=== PATIENT | male | born 1990 | race Caucasian/White ===

== ENCOUNTER 2019-01-11 10:50 | Emergency (ER) | payer SELFPAY ==
[2019-01-11 10:51] VITALS: BP 121/65; PULSE 75; RESP 16; TEMP 36.6; O2SAT 98; BMI 19.0
--- NOTE | 2019-01-11 11:42 | ED.RN ---
PT WAS TOLD BY REGISTRATION THAT HIS INSURANCE WAS NOT VALID. PT DECIDED THAT HE DID NOT WANT TO STAY.
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
== END 2019-01-11 11:53 | disposition left against medical advice (07) ==
PROVIDERS: Emergency Provider Emergency Medicine
DX: S69.91XA Unspecified injury of right wrist, hand and finger(s), initial encounter (principal); X50.1XXA Overexertion from prolonged static or awkward postures, initial encounter; Y93.9 Activity, unspecified; Y92.9 Unspecified place or not applicable; Z53.21 Procedure and treatment not carried out due to patient leaving prior to being seen by health care provider; Z72.0 Tobacco use
CPT/HCPCS: 99282

== ENCOUNTER 2019-03-16 17:55 | Emergency (ER) | payer MEDICAID, SELFPAY ==
[2019-03-16 17:56] VITALS: BP 97/56; PULSE 121; RESP 18; TEMP 37; O2SAT 97; BMI 17.9
[2019-03-16 18:23] LABS: Absolute Neutrophil Count 14.1 X10^3/uL (2.0-7.7); Basophil% 0.6 % (0-1); Eosinophil# 0.21 X10^3/uL; Eosinophils% 1.2 % (0-5); Hematocrit 48.3 % (40-54); Hemoglobin 16.9 g/dL (13.0-16.5); Lymphocyte % 8.8 % (19-41); Mean Corpuscular Hgb 31.5 pg (27.0-32.0); Mean Corpuscular Volume 89.9 fL (80-94); Mean Platelet Vol. 9.8 fl (6.2-12.0); Monocyte# 1.19 X10^3/uL; NRBC Flagged by Analyzer 0 % (0-5); Neutrophil # 14.06 X10^3/uL (2.7-7.7); Platelet Count 224 K/mm3 (150-450); RBC Distribution Width SD 42.5 fl (35.1-43.9); Red Blood Count 5.37 M/mm3 (4.6-6.2); White Blood Count 17.1 K/mm3 (4.4-11.0)
[2019-03-16 18:31] VITALS: RESP 16
[2019-03-16 18:34] LABS: Anion Gap 9 (5-15); BUN 31 mg/dL (7-18); BUN/Creat Ratio 24.8 RATIO (10-20); Calcium,Total 9.5 mg/dL (8.5-10.1); Chloride 102 mmol/L (98-107); Creatinine, Serum 1.25 mg/dL (0.70-1.30); EST Glomerular Filtration Rate 72 mL/min (>60); Est Glom Filt Rate - Afr Amer 88 mL/min (>60); Estimated Creatinine Clearance 73.88 ml/min; Glucose 170 mg/dL (74-106); Potassium 3.5 mmol/L (3.5-5.1); Sodium Level 134 mmol/L (136-145)
--- NOTE | 2019-03-16 18:34 | CM.ED ---
SOCIAL WORK INFORMANT: TRIAGE NURSE REASON FOR REFERRAL: SUICIDAL PATIENT PRESENTS TO ED WITH SUICIDAL IDEATION. PATIENT IS SELF PAY. CRISIS TO EVALUATE ONCE MEDICALLY CLEARED. NURSING AND PHYSICIAN UPDATED. SHAWNA LIRIANO, REGULATOR PIN INSERTER, PLATFORM CONSULTANT.
[2019-03-16 18:42] LABS: Amphetamine Urine VISTA POSITIVE (<1000 ng/mL); Barbiturate Urine VISTA NEGATIVE (< 200 ng/mL); Benzodiazepine Urine VISTA NEGATIVE (< 200 ng/mL); Cocaine Urine VISTA NEGATIVE (< 300 ng/mL); Ecstacy Urine VISTA POSITIVE (< 500 ng/mL); Methadone Urine VISTA NEGATIVE (< 300 ng/mL); PCP Urine VISTA NEGATIVE (< 25 ng/mL); THC Urine VISTA POSITIVE (< 50 ng/mL); Vista UDS pH Range 5
[2019-03-16 18:48] LABS: Alcohol, Blood (Medical)-Serum < 3.0 mg/dL
[2019-03-16 19:20] VITALS: RESP 16
--- NOTE | 2019-03-16 19:24 | ED.VISSUMM ---
- ER Visit Summary Date of Service: 03/16/19 Chief Complaint: Suicidal ideation History of Present Illness: The patient is a 28 M presenting with suicidal ideation. Patient has been having visual hallucinations. He states he has also been talking to himself frequently. He stopped taking his medication for schizophrenia 2.5 months ago. He states that he has been considering trading his truck for a gun and killing himself. He has a history of methamphetamine use. He denies other complaints. Physical Examination: Vitals are stable. Patient is afebrile. Alert no acute distress. HEENT exam is unremarkable. Neck is supple. Lungs are clear and equal bilaterally. Heart is regular and tachycardic Abdomen is soft nontender nondistended. Extremities are unremarkable. Skin is warm and dry. No focal neurologic deficit. Rapid speech, flight of ideas Remainder of exam is unremarkable. Emergency Department Course and Treatment: CBC shows white count 17.1, hemoglobin 16.9. Chemistries show glucose 170, BUN 31. Tox positive for amphetamines, methamphetamine, THC. Alcohol negative. Discussed with the counseling center for evaluation. Disposition: Per counseling center Impression: Suicidal ideation, schizophrenia, noncompliance This note was generated with [employer] dictation software. It may contain incorrect words, spelling, and punctuation that were not noted in review of the chart prior to signing ED Disposition - Plan for ED Patient: Referrals: Care Physician,No Primary [Primary Care Provider] -
--- NOTE | 2019-03-16 19:42 | CM.ED ---
SOCIAL WORK ABDI FROM CRISIS HERE TO ASSESS PATIENT. SHAWNA LIRIANO, FRAME HAND, LOW HEEL BUILDER.
--- NOTE | 2019-03-16 20:22 | EKG12_ITS ---
Test Reason : [facility] [place] Blood Pressure : / mmHG Vent. Rate : 113 BPM Atrial Rate : 113 BPM P-R Int : 114 ms QRS Dur : 086 ms QT Int : 330 ms P-R-T Axes : 080 081 063 degrees QTc Int : 452 ms Sinus tachycardia Right atrial enlargement Borderline ECG Confirmed by ADRIANNE PAZ, ZOE ([id number]), society editor RAFITA BLANKENSHIP ([id number]) on 03/20/2019 10:20:46 AM Referred By: MILADIS Confirmed By:ZOE SILVER MD
[2019-03-16 20:45] LABS: AST(SGOT) 19 U/L (15-37); Alanine Aminotransfer ALT/SGPT 22 U/L (16-61); Alkaline Phosphatase 92 U/L (45-117); Bilirubin, Direct 0.28 mg/dL (0.00-0.30); Globulin 3.8 g/dL (2.2-4.2); Protein, Total 7.8 g/dL (6.4-8.2)
[2019-03-16 21:06] VITALS: RESP 16
[2019-03-16 21:11] LABS: Red Blood Cells-Urine 0 SEEN /hpf (0-5)
[2019-03-16 21:32] LABS: Color, Urine Yellow (Yellow); Glucose, Dipstick Normal (Normal); Leukocyte Esterase-Dipstick 25 /ul (Negative); Nitrite-Dipstick Negative (Negative); Occult Blood-Urine 10 /ul (Negative); Protein-Dipstick 30 mg/dl (Negative); Urine Bilirubin Dipstick Negative (Negative); Urine Clarity Sl. Cloudy (Clear); Urine Urobilinogen 1 mg/dl (Normal)
--- NOTE | 2019-03-16 21:37 | CM.ED ---
SOCIAL WORK UPDATED ON REFERRAL TO [facility].
[2019-03-16 21:42] LABS: Ketone-Dipstick 150 mg/dl (Negative)
--- NOTE | 2019-03-16 21:43 | ED.RN ---
lab called with critical lab results. Dr. Wei made aware. no new orders at this time
[2019-03-16 21:44] LABS: Bacteria 1+ /hpf (None Seen); Mucous, Urine 2+ /hpf (<or=2+); Squamous Epithelial Cells - UA 0-5 SEEN /hpf (0-5); White Blood Cells 0-5 SEEN /hpf (0-5)
[2019-03-16] MEDS: 0.9% Normal Saline 1,000 ML 999 ML IV (21:59)
[2019-03-16] MEDS: LORazepam 0.5 MG Tablet 1 MG PO (22:02)
[2019-03-16 22:45] VITALS: RESP 16
[2019-03-17] VITALS (13 sets, daily range): BP systolic 96–111; BP diastolic 58–96; PULSE 79–88; RESP 15–18; TEMP 36.9; O2SAT 98–100
--- NOTE | 2019-03-17 11:11 | NURSING ---
CALLED CRISIS, LEFT MESSAGE WITH ANSWERING SERVICE
--- NOTE | 2019-03-17 11:16 | NURSING ---
PATIENT 2ND IN LINE FOR A BED AT [facility]
[2019-03-17] MEDS: LORazepam 1 MG Tablet PO (19:25)
--- NOTE | 2019-03-17 20:23 | ED.RN ---
REPORT CALLED TO IVANA AT [facility]
== END 2019-03-17 20:40 ==
LOC: ED 18:44
PROVIDERS: Emergency Provider Emergency Medicine
DX: R45.851 Suicidal ideations (principal); F20.9 Schizophrenia, unspecified; Z91.14 Patient's other noncompliance with medication regimen; F15.90 Other stimulant use, unspecified, uncomplicated; F12.90 Cannabis use, unspecified, uncomplicated; Z72.0 Tobacco use
CPT/HCPCS: 36415; 80048; 80076; 80307; 80320; 81001; 85025; 93005; 96360; 99285; J7030; A4216; G0480

== ENCOUNTER 2019-06-25 13:22 | Emergency (ER) | payer SELFPAY ==
[2019-06-25 13:23] VITALS: PULSE 88; RESP 17; O2SAT 98
[2019-06-25 13:24] VITALS: BP 134/97; PULSE 109; RESP 28; TEMP 36.6; O2SAT 99; BMI 18.8
--- NOTE | 2019-06-25 13:42 | RAD_ITS ---
STUDY: X-RAY CHEST REASON FOR EXAM: Male, 28 years old. Right-sided chest pain. TECHNIQUE: Single AP portable view of the chest. COMPARISON: Comparison is made with prior study of January 17, 2011. FINDINGS: EKG electrodes are seen. Hyperinflation. The lungs are clear. There is no demonstrated pleural abnormality. Normal size heart. Normal mediastinum and ashley. Normal visualized pulmonary arteries. Normal visualized aortic arch and descending thoracic aorta. Normal visualized thoracic spine. Healed mid right clavicular fracture. There is no demonstrated abnormality of the visualized soft tissue structures of the upper abdomen. RAD/Chest 1 View (Portable) IMPRESSION: Hyperinflation. The lungs are clear. Electronically Signed: Alok Erickson, at 14:17 EST , Service support ,
--- NOTE | 2019-06-25 13:42 | EKG12_ITS ---
Test Reason : [facility] Blood Pressure : / mmHG Vent. Rate : 081 BPM Atrial Rate : 081 BPM P-R Int : 120 ms QRS Dur : 088 ms QT Int : 352 ms P-R-T Axes : 073 072 067 degrees QTc Int : 408 ms Normal sinus rhythm with sinus arrhythmia Normal ECG Confirmed by CLOTILDE SORENSEN ([id number]), telegraph editor SUZANNE KAPLAN ([id number]) on 06/28/2019 11:21:06 AM Referred By: LEDY Confirmed By:CLOTILDE SORENSEN
[2019-06-25 14:07] LABS: Absolute Lymphocyte Count 2.58 X10^3/uL (0.83-4.51); Absolute Neutrophil Count 9.9 X10^3/uL (2.0-7.7); Basophil# 0.11 X10^3/uL; Basophil% 0.8 % (0-1); Eosinophil# 0.18 X10^3/uL; Eosinophils% 1.3 % (0-5); Hematocrit 48.7 % (40-54); Hemoglobin 16.7 g/dL (13.0-16.5); Lymphocyte # 2.58 X10^3/ul (4.0); Lymphocyte % 18.6 % (19-41); Mean Corp Hgb Conc 34.3 g/dL (32-36); Mean Corpuscular Volume 93.3 fL (80-94); Mean Platelet Vol. 10.1 fl (6.2-12.0); Monocyte# 1.07 X10^3/uL; Monocyte% 7.7 % (0-10); NRBC Flagged by Analyzer 0 % (0-5); Neutrophil # 9.91 X10^3/uL (2.7-7.7); Neutrophil % 71.4 % (47-70); Platelet Count 258 K/mm3 (150-450); RBC Distribution Width CV 13.1 % (11.6-14.6); Red Blood Count 5.22 M/mm3 (4.6-6.2); White Blood Count 13.9 K/mm3 (4.4-11.0)
[2019-06-25 14:19] LABS: Anion Gap 6 (5-15); BUN 13 mg/dL (7-18); BUN/Creat Ratio 12.4 RATIO (10-20); Calcium,Total 8.7 mg/dL (8.5-10.1); Chloride 105 mmol/L (98-107); Creatinine, Serum 1.05 mg/dL (0.70-1.30); EST Glomerular Filtration Rate 88 mL/min (>60); Est Glom Filt Rate - Afr Amer 107 mL/min (>60); Glucose 96 mg/dL (74-106); Potassium 3.8 mmol/L (3.5-5.1); Sodium Level 141 mmol/L (136-145)
--- NOTE | 2019-06-25 15:18 | ED.DCSUM_ITS ---
- ER Visit Summary Date of Service: 06/25/19 Chief Complaint: Chest pain History of Present Illness: The patient is a 28 M with right-sided chest pain that radiates to his back. He feels like something is compressing his spine. This happened when he was shifting gears in his car. He had some symptoms yes terday, but it was worse today. He denies any history of heart disease, PE, or dissection. Denies any other associated symptoms like shortness of breath, nausea vomiting, sweats, lightheadedness, weakness, numbness, fevers. Physical Examination: Afebrile and vital signs unremarkable. Patient appears uncomfortable. He is arching his back and yelling. His heart is regular. Lungs are clear. Right chest is tender to palpation with light touch. Spine and ribs otherwise unremarkable. He is neurovascularly intact distally in all of his extremities. Skin appears normal. Test Results: EKG showed sinus rhythm at a rate of 81. White count 13.9 and hemoglobin 16.7. Chem panel normal. Troponin normal. X-ray showed hyperinflation but nothing acute. Emergency Department Course and Treatment: Patient was seen immediately. EKG was done and showed no sign of acute ischemia or infarction pattern. He was placed on the monitor. It sounds like his symptoms are myofascial. I did check some basic labs which were unremarkable. Chest x-ray was normal. Patient was treated with Ativan for muscle spasm and anxiety. On reevaluation, patient was resting comfortably. No longer arching his back. He said he did not feel any better. He declined reexamination. He said get me the fuck out of here and I am going to another hospital. Patient does not have any risk factors for PE or dissection. Nothing to suggest ACS. Patient will be discharged in his wishes. Treatment Plan: As above Disposition: Discharged Impression: 1. Chest pain This note was generated with [employer] dictation software. It may contain incorrect words, spelling, and punctuation that were not noted in review of the chart prior to signing ED Disposition - Plan for ED Patient: Referrals: Care Physician,No Primary [Primary Care Provider] -
--- NOTE | 2019-06-25 15:21 | ED.DEP ---
ED Disposition - Plan for ED Patient: Instructions: CHEST PAIN, Uncertain Cause Referrals: Jaylin Huang [NON-STAFF] -
--- NOTE | 2019-06-25 15:28 | ED.RN ---
PT REFUSING ALL CARE, CURSING, BELLIGERENT. REFUSES TO LET THIS RN OBTAIN VITAL SIGNS, REFUSES DISCHARGE PAPERWORK, REFUSES TO LEAVE ROOM.
--- NOTE | 2019-06-25 15:29 | ED.RN ---
POLICE AT BEDSIDE
== END 2019-06-25 15:51 | disposition home or self-care (01) ==
LOC: ED 14:07
PROVIDERS: Emergency Provider Emergency Medicine
DX: R07.9 Chest pain, unspecified (principal); F17.200 Nicotine dependence, unspecified, uncomplicated
CPT/HCPCS: 71045; 80048; 84484; 85025; 93005; 99281; A4216

== ENCOUNTER 2019-08-20 23:24 | Inpatient (IN) | payer MEDICAID, SELFPAY ==
[2019-08-20 23:26] VITALS: BP 133/71; PULSE 99; RESP 20; TEMP 36.7; O2SAT 98; BMI 19.4
--- NOTE | 2019-08-20 23:42 | EKG12_ITS ---
Test Reason : [facility] Blood Pressure : / mmHG Vent. Rate : 088 BPM Atrial Rate : 088 BPM P-R Int : 134 ms QRS Dur : 084 ms QT Int : 374 ms P-R-T Axes : 076 081 076 degrees QTc Int : 452 ms Normal sinus rhythm Normal ECG Confirmed by CLOTILDE SORENSEN ([id number]), web editor JORDAN PEOPLES ([id number]) on 08/22/2019 10:42:40 AM Referred By: ZAID Confirmed By:CLOTILDE SORENSEN
[2019-08-20 23:52] LABS: Absolute Lymphocyte Count 4.15 X10^3/uL (0.83-4.51); Absolute Neutrophil Count 6.1 X10^3/uL (2.0-7.7); Basophil# 0.11 X10^3/uL; Basophil% 0.9 % (0-1); Eosinophil# 0.54 X10^3/uL; Eosinophils% 4.6 % (0-5); Hematocrit 46.8 % (40-54); Hemoglobin 16.2 g/dL (13.0-16.5); Lymphocyte # 4.15 X10^3/ul (4.0); Lymphocyte % 35.3 % (19-41); Mean Corp Hgb Conc 34.6 g/dL (32-36); Mean Corpuscular Hgb 31.6 pg (27.0-32.0); Mean Corpuscular Volume 91.2 fL (80-94); Mean Platelet Vol. 9.9 fl (6.2-12.0); Monocyte% 6.8 % (0-10); NRBC Flagged by Analyzer 0 % (0-5); Neutrophil # 6.12 X10^3/uL (2.7-7.7); Neutrophil % 52.1 % (47-70); Platelet Count 285 K/mm3 (150-450); RBC Distribution Width CV 12.8 % (11.6-14.6); RBC Distribution Width SD 42.6 fl (35.1-43.9); Red Blood Count 5.13 M/mm3 (4.6-6.2); White Blood Count 11.8 K/mm3 (4.4-11.0)
--- NOTE | 2019-08-20 23:59 | ED.VIS.GEN ---
History of Present Illness Chief Complaint: ETOH Intox Narrative: Patient presenting due to being unresponsive. Per PD the patient was found unresponsive in his car. EMS was contacted. Patient was found with an empty bottle of whiskey. Additional history is unable to be obtained secondary to the patient being unresponsive. Past Medical History - Allergies and Home Meds Allergies/Adverse Reactions: Allergies No Known Allergies Allergy (Verified 08/20/19 23:48) Primary Care Physician: Care Physician,No Primary [Primary Care Provider] - Past Medical History: - - Past psychiatric history Smoking Status: Current every day smoker Review of Systems ROS: Unable to Obtain Physical Exam Vital Signs/Narrative: Vital Signs Temp Pulse Resp BP Pulse Ox 08/20/19 23:26 98.1 F 99 20 H 133/71 H 98 General: Well nourished, Well developed, Acute Distress, - - Patient appears to be protecting his airway. He does localize somewhat to noxious stimuli but does not respond to voice. He would not open his eyes. Head: Normocephalic, Atraumatic Eyes: Perrl, EOMI ENT: Moist mucous membranes Neck: Supple, Nontender Cardiovascular: Regular rate, Regular rhythm, No murmurs Respiratory: No distress, CTA bilaterally, Chest nontender Abdomen: Soft, Nontender, Nondistended, Normal bowel sounds Back: Normal Inspection Extremities: Nontender, No edema Skin: Normal color, No rash Neurological: - - Responds minimally to noxious stimuli Diagnostic/Tx/Re-eval - EKG Initial EKG Interpretation: - - Sinus rhythm at [address] segments normal T waves normal IL and QTc intervals normal QRS duration no evidence of acute ischemia or arrhythmia. - Medical Decision Making Patient presented secondary to undifferentiated altered mental status. Patient is breathing adequately and appears to be protecting his airway despite his decreased level of consciousness. There is no last known well time, and this seems more consistent with a encephalopathy rather than a stroke, so stroke team was not activated. CT imaging of the brain was found to be negative. CBC demonstrates a very mild leukocytosis of 11 with no neutrophilic predominance. Chemistry panel found to be unremarkable. Toxicology screen was positive for cannabinoids. Ethanol was found to be elevated to 140. Salicylate and Tylenol levels are found to be negative. EKG shows no signs of abnormal changes. ABG shows no evidence of profound acidosis. Carbon monoxide level was obtained and was only found to be 4. Patient was observed in the emergency department over the course of 3 hours, and despite that is still having decreased level of consciousness. He has a good gag reflex, but does not really localize well to noxious stimuli, but occasionally will move and moan. Again, this does not seem consistent with stroke, he has no evidence of head injury or intracranial hemorrhage, he has no evidence of meningitis. The likelihood is that this was a intentional overdose of some sort, but I believe the patient requires admission for further observation. - Critical Care Time Critical care time (excluding procedures): 30-74 minutes, Performing Direct Patient Care at Bedside ED Disposition - Plan for ED Patient: Disposition: Acute [facility] Diagnosis: Acute encephalopathy, History of suicide attempt Referrals: Care Physician,No Primary [Primary Care Provider] -
[2019-08-21] VITALS (22 sets, daily range): BP systolic 97–134; BP diastolic 53–87; PULSE 65–91; RESP 13–22; TEMP 36.3–37.3; O2SAT 93–99; BMI 19.3; BMI 19.5
[2019-08-21 00:09] LABS: AST(SGOT) 17 U/L (15-37); Alanine Aminotransfer ALT/SGPT 17 U/L (16-61); Albumin, Serum 3.7 g/dL (3.2-5.0); Alkaline Phosphatase 98 U/L (45-117); Anion Gap 5 (5-15); BUN 9 mg/dL (7-18); BUN/Creat Ratio 9.4 RATIO (10-20); Calcium,Total 8.8 mg/dL (8.5-10.1); Chloride 110 mmol/L (98-107); Creatinine, Serum 0.96 mg/dL (0.70-1.30); EST Glomerular Filtration Rate 98 mL/min (>60); Est Glom Filt Rate - Afr Amer 119 mL/min (>60); Estimated Creatinine Clearance 101.65 ml/min; Globulin 3.6 g/dL (2.2-4.2); Glucose 78 mg/dL (74-106); Potassium 3.6 mmol/L (3.5-5.1); Protein, Total 7.3 g/dL (6.4-8.2); Sodium Level 143 mmol/L (136-145)
[2019-08-21 00:10] LABS: Vista UDS pH Range 5
[2019-08-21 00:25] LABS: Carboxyhemoglobin Frac (CO) 4.1 % (0.0-1.5)
[2019-08-21 00:27] LABS: Amphetamine Urine VISTA NEGATIVE (<1000 ng/mL); Barbiturate Urine VISTA NEGATIVE (< 200 ng/mL); Benzodiazepine Urine VISTA NEGATIVE (< 200 ng/mL); Cocaine Urine VISTA NEGATIVE (< 300 ng/mL); Ecstacy Urine VISTA NEGATIVE (< 500 ng/mL); Methadone Urine VISTA NEGATIVE (< 300 ng/mL); PCP Urine VISTA NEGATIVE (< 25 ng/mL); THC Urine VISTA POSITIVE (< 50 ng/mL)
[2019-08-21 00:27] LABS: Acetaminophen (Tylenol) Level < 2.0 ug/mL (10.0-30.0); Salicylate 2.6 mg/dL (2.8-20.0)
[2019-08-21 00:28] LABS: Lactic Acid 2.6 mmol/L (0.4-1.9)
[2019-08-21 00:35] LABS: Blood Gas Specimen Type VEN; O2 Delivery Device Room Air; SITE OTHER; Time Given 20; VBG BASE EXCESS 6 mmol/L (-1.0-3.5); VBG Bicarbonate 31 mmol/L (22-26); VBG Oxygen Content 33 mmol/L (23-33); VBG PO2 23 mmHg (25-40); VBG SO2 37 % (50-70); VBG pCO2 52.1 mmHg (41-51); VBG pH 7.38 (7.32-7.42)
--- NOTE | 2019-08-21 00:35 | CPS ---
Venous blood gas obtained by nurse, ran by ARIANNA [facility].
[2019-08-21 03:55] LABS: Reflex Lactate? Y
[2019-08-21 04:20] LABS: Absolute Lymphocyte Count 2.64 X10^3/uL (0.83-4.51); Absolute Neutrophil Count 6.5 X10^3/uL (2.0-7.7); Ammonia < 10.0 umol/L (11-32); Basophil# 0.09 X10^3/uL; Basophil% 0.9 % (0-1); Eosinophil# 0.44 X10^3/uL; Eosinophils% 4.2 % (0-5); Lymphocyte # 2.64 X10^3/ul (4.0); Lymphocyte % 25.2 % (19-41); Mean Corp Hgb Conc 34.1 g/dL (32-36); Mean Corpuscular Hgb 31.3 pg (27.0-32.0); Mean Corpuscular Volume 91.9 fL (80-94); Mean Platelet Vol. 10.1 fl (6.2-12.0); Monocyte# 0.76 X10^3/uL; Monocyte% 7.2 % (0-10); NRBC Flagged by Analyzer 0 % (0-5); Neutrophil # 6.52 X10^3/uL (2.7-7.7); Neutrophil % 62.1 % (47-70); Platelet Count 257 K/mm3 (150-450); RBC Distribution Width CV 12.8 % (11.6-14.6); RBC Distribution Width SD 43.3 fl (35.1-43.9); Red Blood Count 4.79 M/mm3 (4.6-6.2); White Blood Count 10.5 K/mm3 (4.4-11.0)
--- NOTE | 2019-08-21 04:26 | HP.PCM_ITS ---
Problem List (1) Acute encephalopathy Status: Acute (2) History of suicide attempt Status: Chronic History of Present Illness Date of Admission: 08/21/19 Chief Complaint: Altered mental status The patient is a 28 year old M with past medical history of polysubstance use disorder, history of suicide attempt was found unresponsive by the police department. Patient was found in his car, slumped over the wheel, unresponsive with a bottle of whiskey. The EMS report, patient was moaning on arrival. He was unresponsive to painful stimuli. Patient was said to have turned his head with an ammonia stimulation. His vitals was 98.1F, heart rate 99, blood pressure 133/71, respiratory to 20, SPO2 was 98% on room air. Admitting blood work showed WBC count of 11.8, otherwise normal CBCD. CMP was unremarkable. Lactic acid was 2.6. Ammonia<10. Urine tox was positive for cannabinoids and alcohol. CT scan of the brain showed no acute intracranial process. Past Medical History Past Medical History (Chronic Problems): Chronic Problems History of suicide attempt (Chronic) Allergies No Known Allergies Allergy (Verified 08/20/19 23:48) Home Medications: Ambulatory Orders Medication Instructions Recorded No Known/Unobtainable [No Known 03/06/17 Home Medications] Surgical History: no surgical history Psychiatric History: No pertinent psych hx Smoking Status: Current every day smoker Alcohol: Heavy Drugs: Marijuana - *Family History Maternal History Items: Unknown Paternal History Items: Unknown Review of Systems Unable to obtain accurate/complete ROS d/t: Unable to obtain review of systems on account of unresponsiveness VTE Information - Inpt Only VTE Present on Admission: No VTE Pharm Prophylaxis ordered?: Yes Patient Problems: Active and Suspected Problems Acute encephalopathy (Acute) - Physical Exam Vitals/I&O's: Vital Signs Temp Pulse Resp BP Pulse Ox 98.1 F 91 18 134/64 H 99 08/20/19 23:26 08/21/19 02:00 08/21/19 02:00 08/21/19 02:00 08/21/19 02:00 Oxygen Delivery Method Room Air Weight: 60.5 kg Body Mass Index (BMI) 19.3 Finger Stick Blood Glucose 70 General: Lethargic, - - Patient not responsive to any stimuli, appears to be in deep sleep HEENT: Atraumatic, Normocephalic, - - Reports equal and reactive to light Neck: Supple Lungs: Clear to auscultation Cardiovascular: Regular rate Abdomen: Bowel Sounds Present Extremities: No clubbing Skin: No rashes Musculoskeletal: No Tenderness to Palpation of Joints or Extremities Lymphatic: No Cervical, Supraclavicular, or Inguinal Adenopathy Neurological: Cranial nerves II-XII grossly intact Psych/Mental Status: Normal Affect Laboratory Results 08/20/19 23:30: WBC 11.8 H, RBC 5.13, Hgb 16.2, Hct 46.8, MCV 91.2, MCH 31.6, MCHC 34.6, RDW Std Deviation 42.6, RDW Coeff of Shaina 12.8, Plt Count 285, MPV 9.9, Immature Gran % (Auto) 0.300, Neut % (Auto) 52.1, Lymph % (Auto) 35.3, [place] % (Auto) 6.8, Eos % (Auto) 4.6, Baso % (Auto) 0.9, Absolute Neuts (auto) 6.1, Absolute Lymphs (auto) 4.15, Nucleated RBC % 0 08/20/19 23:30: Sodium 143, Potassium 3.6, Chloride 110 H, Carbon Dioxide 28.0, Anion Gap 5, BUN 9, Creatinine 0.96, Estim Creat Clear Calc 101.65, Est GFR (MDRD) Af Amer 119, Est GFR (MDRD) Non-Af 98, BUN/Creatinine Ratio 9.4 L, Glucose 78, Calcium 8.8, Total Bilirubin 0.20, AST 17, ALT 17, Alkaline Phosphatase 98, Total Protein 7.3, Albumin 3.7, Globulin 3.6, Albumin/Globulin Ratio 1.0 08/20/19 23:30: Ethyl Alcohol 147.0 08/20/19 23:30: Salicylates 2.6 L, Acetaminophen < 2.0 L 08/20/19 23:30: VBG Carboxyhemoglobin 4.1 H 08/20/19 23:38: Urine Opiates Screen NEGATIVE, Urine Methadone Screen NEGATIVE, Ur Barbiturates Screen NEGATIVE, Ur Phencyclidine Scrn NEGATIVE, Ur Amphetamines Screen NEGATIVE, U Methamphetamin-MDMA NEGATIVE, U Benzodiazepines Scrn NEGATIVE, Urine Cocaine Screen NEGATIVE, U Cannabinoids Screen POSITIVE H, Ur Drug Screen Comment 08/20/19 23:55: Lactic Acid 2.6 H* 08/21/19 00:31: Specimen Type LUIS, Sample Site OTHER, VBG pH 7.38, VBG pO2 23 L, VBG O2 Sat (Calc) 37 L, VBG O2 Content 33, VBG Base Excess 6 H, POC Mix VBG pCO2 Pt Tmp 52.1 H, O2 Delivery Device Room Air, Blood Gas Notified Whom ED MD, Blood Gas Notified Time 08/21/19 03:35: Ammonia < 10.0 L 08/21/19 03:35: WBC 10.5, RBC 4.79, Hgb 15.0, Hct 44.0, MCV 91.9, MCH 31.3, MCHC 34.1, RDW Std Deviation 43.3, RDW Coeff of Shaina 12.8, Plt Count 257, MPV 10.1, Immature Gran % (Auto) 0.400, Neut % (Auto) 62.1, Lymph % (Auto) 25.2, [place] % (Auto) 7.2, Eos % (Auto) 4.2, Baso % (Auto) 0.9, Absolute Neuts (auto) 6.5, Absolute Lymphs (auto) 2.64, Nucleated RBC % 0 08/21/19 03:35: Sodium Pending, Potassium Pending, Chloride Pending, Carbon Dioxide Pending, Anion Gap Pending, BUN Pending, Creatinine Pending, Est GFR (MDRD) Af Amer Pending, Est GFR (MDRD) Non-Af Pending, BUN/Creatinine Ratio Pending, Glucose Pending, Calcium Pending, Total Bilirubin Pending, AST Pending, ALT Pending, Alkaline Phosphatase Pending, Total Protein Pending, Albumin Pending Current Medications Glucagon () 1 mg IM .X1 PRN PRN Reason: Hypoglycemia Sodium Chloride () 250 mls @ 15 mls/hr IV .[id number] PRN PRN Reason: Saline Flush Sodium Chloride () 250 mls @ 15 mls/hr IV .[id number] PRN PRN Reason: Additional IVPB Infusion Dextrose (Dextrose 10%-Water) 250 mls @ 999 mls/hr IV .Q16M PRN; Protocol PRN Reason: HYPOGLYCEMIA Ondansetron HCl (Zofran) 4 mg IV Q8H PRN PRN PRN Reason: NAUSEA/VOMITING Sodium Chloride () 10 - 40 ml IV UD PRN PRN Reason: SALINE FLUSH Assessment/Plan All Active Problems Acute encephalopathy (Acute) 28 year old M with past medical history of polysubstance use disorder, history of suicide attempt was found unresponsive by the police department. 1. Acute encephalopathy, likely toxic related to substance abuse Urine tox is positive for cannabinoids, serum alcohol level is 147, ammonia is less than 10 May be related to other substances he may have taken that we are unable to test for. His GCS is about 3/15 but he appears intoxicated, sleeping Not responsive to noxious stimuli. Has an intact gag reflexes VBG on admission was unremarkable. His oxygen saturations and his blood pressures have been stable Will continue to monitor. Will have a low threshold for intubation for primary airway protection We will need to contact family to act as surrogate decision makers for care 2. History of suicidal attempt, unclear if this was a suicidal attempt 3. Polysubstance use disorder, will start on folic acid, thiamine and D5NS 4. DVT PPx- Heparin SC Code Visit Inpatient E&M: 17852 Init Hosp L3
[2019-08-21 04:31] LABS: Bedside Glucose 88 mg/dL (70-110)
[2019-08-21 04:51] LABS: ALB/GLOB Ratio 1.1 RATIO (0.9-2.4); AST(SGOT) 15 U/L (15-37); Alanine Aminotransfer ALT/SGPT 16 U/L (16-61); Albumin, Serum 3.3 g/dL (3.2-5.0); Alkaline Phosphatase 86 U/L (45-117); Anion Gap 5 (5-15); BUN 9 mg/dL (7-18); BUN/Creat Ratio 11.6 RATIO (10-20); Chloride 110 mmol/L (98-107); Creatinine, Serum 0.77 mg/dL (0.70-1.30); EST Glomerular Filtration Rate 125 mL/min (>60); Est Glom Filt Rate - Afr Amer 152 mL/min (>60); Estimated Creatinine Clearance 121.13 ml/min; Glucose 90 mg/dL (74-106); Potassium 3.7 mmol/L (3.5-5.1); Protein, Total 6.3 g/dL (6.4-8.2); Sodium Level 143 mmol/L (136-145)
[2019-08-21 04:56] LABS: Lactic Acid 1.3 mmol/L (0.4-1.9)
[2019-08-21] MEDS: 0.9% Saline Lock 10 ML Syringe IV (04:57)
[2019-08-21] MEDS: Heparin Injection (Vial) 5,000 UNIT/ML VIAL 5000 UNIT SC (04:59)
[2019-08-21] MEDS: Dextrose 5%/0.9% NaCl 1,000 ML 100 ML IV (05:34)
[2019-08-21 06:40] LABS: Bedside Glucose 95 mg/dL (70-110)
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
[2019-08-21] MEDS: LORazepam 1 MG Tablet PO ×2 (12:06→20:01)
--- NOTE | 2019-08-21 12:45 | PN_ITS ---
Progress Note Patient was admitted for alcohol desiccation, was obtunded. This morning, he is alert and noted x3. He denies any complaints. He denied any suicidal attempts or ideations. Physical examination is unremarkable. Vital signs are stable. He was evaluated by mental crisis and recommended that there is no need for inpatient psychiatric admission evaluation as patient is not suicidal. Patient showed interest in quitting drinking alcohol and he wanted to be detoxified. I explained to the patient that he will be moved out of the ICU and will start on medical stabilization protocol for alcohol intoxication/withdrawal. Plan: Transfer to [place] [id number], start Ativan taper for alcohol withdrawal, PRN methocarbamol, Zofran, Bentyl, Vistaril, daily thiamine folic acid, daily vitamins. STROKE Vital Signs/Narrative: Vital Signs Temp Pulse Resp BP BP Pulse Ox 08/21/19 12:00 97.9 F 79 14 107/72 97 08/21/19 11:00 83 22 H 107/87 H 98 08/21/19 10:00 72 18 106/67 99 08/21/19 09:00 66 19 H 114/55 L 97
--- NOTE | 2019-08-21 15:49 | CASEMGMT ---
Social Work SW attempted to speak with pt in room. Pt presenting with eyes closed did awake when name called. Pt groggy and stating he would prefer to talk to SW tomorrow. SW will revisit pt tomorrow. MANI Rider
--- NOTE | 2019-08-21 16:38 | NURSING ---
pt drowsy , arousable to voice, but quickly falls back to sleep. No giving Ativan scheduled at this time
--- NOTE | 2019-08-21 17:52 | NURSING ---
report given to Terri MANCERA on MS3
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
[2019-08-22] VITALS (7 sets, daily range): BP systolic 101–112; BP diastolic 55–73; PULSE 67–84; RESP 16–18; TEMP 36.7–37; O2SAT 93–96
[2019-08-22] MEDS: LORazepam 1 MG Tablet PO ×5 (00:02→20:16)
[2019-08-22] MEDS: Methocarbamol 750 MG Tablet PO (00:04)
[2019-08-22] MEDS: Acetaminophen 500 MG Tablet PO (04:04)
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
[2019-08-22] MEDS: Folic Acid 1 MG Tablet PO (09:15)
[2019-08-22] MEDS: Thiamine Hydrochloride 100 MG Tablet PO (09:15)
[2019-08-22] MEDS: Multivitamins,Therapeutic Tablet 1 TABLET PO (09:15)
--- NOTE | 2019-08-22 10:07 | NURSING ---
spoke with dr agee re: possible abnormal heart sound/rub versus rhonchi, does not change with cough
--- NOTE | 2019-08-22 12:13 | CASEMGMT ---
Social Work MARY met with pt in room and introduced self and role at . Pt confirms he did see patient financial services and submitted a Medicaid application. SW reminded pt that he will need to submit requested documents to [employer] to complete application and he is understanding and agreeable. SW also inquired about visit from Crisis and pt confirms that he has an appointment set and is planning to keep appointment but cannot remember when. Pt stating that he has been using alcohol to cope with anxiety. Pt stating he previously has used heroine to cope but not any longer. Pt has utilized the services of [facility] for drug abuse. Pt did accept written information on alcohol programs in the area. Per Crisis note, appointment is 08/28 at 8am. SW wrote appointment card for pt and he accepted and confirmed he will have transportation to appointment. SW will remain available should other need arise. MANI Rider
--- NOTE | 2019-08-22 14:27 | CHAPLAIN ---
patient is sleeping and did not awaken at mention of his name; left calling card
[2019-08-22] MEDS: traZODone 50 MG Tablet PO (20:17)
[2019-08-23] MEDS: LORazepam 1 MG Tablet PO ×2 (02:58→09:03)
[2019-08-23 04:00] VITALS: BP 118/48; PULSE 65; RESP 16; TEMP 36.6; O2SAT 98
[2019-08-23] MEDS: Multivitamins,Therapeutic Tablet 1 TABLET PO (09:03)
[2019-08-23] MEDS: Folic Acid 1 MG Tablet PO (09:03)
[2019-08-23] MEDS: Thiamine Hydrochloride 100 MG Tablet PO (09:03)
--- NOTE | 2019-08-23 09:06 | PN_ITS ---
Patient Problems: Active and Suspected Problems Acute encephalopathy (Acute) Acute alcohol intoxication (Acute) Subjective: Chief complaint: Follow-up after admission for acute alcohol intoxication/withdrawal. Patient seen and examined. No acute events overnight. He denied any complaints. He was able to sleep at night. He did mention that he does have some craving for drinking alcohol. His vital signs are stable. - Physical Exam Vitals/I&O's: Vital Signs Temp Pulse Resp BP Pulse Ox 97.9 F 65 16 118/48 L 98 08/23/19 04:00 08/23/19 04:00 08/23/19 04:00 08/23/19 04:00 08/23/19 04:00 Oxygen Delivery Method Room Air Weight: 135 lb 9.349 oz Body Mass Index (BMI) 19.3 Finger Stick Blood Glucose 70 Intake and Output for Last 24 Hours 08/21/19 08/22/19 08/23/19 23:59 23:59 23:59 Intake Total 2302.2 / 2952.2 1800 / 1999 500 / 500 Output Total 900 / 900 Balance 1402.2 / 2052.2 1800 / 2000 500 / 500 General: Alert, Oriented x3, Cooperative, No apparent distress HEENT: Atraumatic, PERRLA, EOMI, Normocephalic Oral: Moist Mucosa, No Gingival or Mucosal Lesions/ Ulcerations Neck: Supple, No JVD, Negative Carotid Bruits, Trachea Midline, Thyroid Normal Size and Texture Lungs: Clear to auscultation, No rhonchi, No wheeze, No rales Cardiovascular: Regular rate, Regular Rhythm, Normal S1, Normal S2, PMI Normal Abdomen: Bowel Sounds Present, Soft, Non Tender, Non-Distended, No Hepato- splenomegaly Extremities: No clubbing, No cyanosis, No edema Skin: No rashes, No breakdown Lymphatic: No Cervical, Supraclavicular, or Inguinal Adenopathy Neurological: Cranial nerves II-XII grossly intact, Neuro grossly intact Psych/Mental Status: Normal Affect, Appropriate Current Medications Acetaminophen (Tylenol) 500 mg PO Q4H PRN PRN PRN Reason: Temp > 100.4 F Last Admin: 08/22/19 04:04 Dose: 500 mg Documented by: Dicyclomine HCl (Bentyl) 20 mg PO Q6H PRN PRN PRN Reason: abdominal discomfort Folic [facility] (Folic Acid) [facility] Stop: 08/24/19 08:01 Last Admin: 08/23/19 09:03 Dose: 1 mg Documented by: Glucagon () 1 mg IM .X1 PRN PRN Reason: Hypoglycemia Hydroxyzine Pamoate (Vistaril Pamoate Capsule) 50 mg PO Q6H PRN PRN PRN Reason: Mild Anxiety (score 1/3) Sodium Chloride () 250 mls @ 15 mls/hr IV .[id number] PRN PRN Reason: Saline Flush Sodium Chloride () 250 mls @ 15 mls/hr IV .[id number] PRN PRN Reason: Additional IVPB Infusion Loperamide HCl (Imodium) 2 - 4 mg PO UD PRN PRN Reason: LOOSE STOOLS Lorazepam (Ativan) 1 mg PO Q8H [facility]; Taper Stop: 08/24/19 15:59 Last Admin: 08/23/19 09:03 Dose: 1 mg Documented by: Methocarbamol (Methocarbamol) 750 mg PO Q6H PRN PRN PRN Reason: Muscle Aches Last Admin: 08/22/19 00:04 Dose: 750 mg Documented by: Multivitamins (Multivitamin) [facility] Last Admin: 08/23/19 09:03 Dose: 1 tablet Documented by: Ondansetron HCl (Zofran Odt) 4 mg PO Q6H PRN PRN PRN Reason: NAUSEA Sodium Chloride () 10 - 40 ml IV UD PRN PRN Reason: SALINE FLUSH Last Admin: 08/21/19 04:57 Dose: 20 ml Documented by: Thiamine HCl (Vitamin B1) [facility] Stop: 08/24/19 08:01 Last Admin: 08/23/19 09:03 Dose: 100 mg Documented by: Trazodone HCl (Desyrel) 50 mg PO QHS [facility] Last Admin: 08/22/19 20:17 Dose: 50 mg Documented by: Medical Necessity - Tobacco Use Smoking Status: Current every day smoker Tobacco Use: Cigarettes Assessment/Plan All Active Problems Acute encephalopathy (Acute) Acute alcohol intoxication (Acute) This is a 28 years old male patient presented to the emergency room because he was found unresponsive in his car by the police, was admitted to the intensive care unit for alcohol intoxication and later, patient requested alcohol detoxification. #1 acute encephalopathy: Secondary to intoxication. Resolved. His vital signs are stable. Routine blood work was unremarkable. His blood alcohol level was 147. Urine drug screen was positive for cannabinoids. CT scan brain showed no acute findings. #2 acute alcohol intoxication/withdrawal: He is on Ativan taper, thiamine, folic acid, PRN Bentyl, methocarbamol, Vistaril, Imodium, Zofran and trazodone. Symptoms are improving, no significant symptoms of withdrawal. Vitals are st able. Plan to continue same treatment, DC home tomorrow morning, follow-up with [facility] program as outpatient. #3 elevated lactic acid: Attributed to being unresponsive secondary to intoxication. Lactic acid is back to normal with IV fluids. No evidence of infection. #4 history of suicide attempt: Patient looks depressed, poor eye contact. He was evaluated by mental causes yesterday and he appeared to be not suicidal or homicidal and he requested alcohol detoxification. Mental crisis team mentioned that he does not need inpatient psychiatric evaluation. #5 tobacco abuse: NicoDerm patch if desired. #6 DVT prophylaxis: Low risk patient, no prophylaxis indicated. This note was generated with [employer] dictation software. It may contain incorrect words, spelling, and punctuation that were not noted in checking the note before signing. Code Visit Inpatient E&M: 81880 Subs Hosp L2
[2019-08-23 09:22] VITALS: BP 111/49; PULSE 70; RESP 18; TEMP 36.7; O2SAT 95
--- NOTE | 2019-08-23 14:37 | PCM.DC.SUM ---
Discharge Date and Diagnosis Date of Admission: 08/21/19 Date of Discharge: 08/23/19 - Primary Discharge Diagnosis #1 acute alcohol intoxication. #2 acute encephalopathy. #3 lactic acidosis. #4 acute alcohol withdrawal requested medical stabilization. - Secondary Discharge Diagnosis Chronic Problems History of suicide attempt (Chronic) Tobacco abuse (Chronic) Hospital Course and Treatment Imaging Results: Clinical Impression(s) from Imaging Studies Brain CT 08/21/19 23:41 IMPRESSION: Negative CT brain without contrast. Electronically Signed: Zaire Elan, at 0:36 EST Tel , Service support , Consultations 08/21/19 08:04 Consult: Mental Health/Crisis Routine Reason for consult?: Alcohol intoxication, depressed, history of suicide attempt Date Notified:: 08/21/19 Time notified:: 08:32 Operations: None Procedures: None Summary of Care Provided: The patient is a 28 year old M patient presented to the emergency room because he was found unresponsive in his car by police, was found to have acute alcohol intoxication, admitted to intensive care unit because he was in deep sleep and encephalopathic. Blood alcohol level on admission was 147. Urine drug screen was positive for cannabinoids. He was found to have lactic acid of 2.6 on admission which is attributed to being unresponsive and hyper intoxication. There was no evidence of sepsis or severe sepsis, no evidence of infection. His ammonia level was normal. CT scan brain showed no acute findings. The next day after admission, patient woke up, was having poor eye contact and seemed depressed. He does have a history of suicide attempts. During this hospital stay, he denied any suicide attempts, ideations or intentions. He was evaluated by mental health crisis and stated that he is not suicidal or homicidal and no indication for inpatient psychiatric evaluation or treatment. On that day, patient requested detoxification from alcohol abuse. Patient was transferred to [facility] and was started on alcohol detox program with tapering Ativan, thiamine, folic acid, PRN Bentyl, Vistaril, methocarbamol, Zofran and trazodone. He did okay until the day when he left the hospital. He stated to the nursing staff that he wants to leave AMA. I was on the floor and there was about to see the patient after I see when patient and when I came out of that room, the nurse told me the patient left the floor already. Patient left the hospital AGAINST MEDICAL ADVICE. - Physical Exam Vitals/I&O's: Vital Signs Temp Pulse Resp BP Pulse Ox 98.1 F 70 18 111/49 L 95 08/23/19 09:22 08/23/19 09:22 08/23/19 09:22 08/23/19 09:22 08/23/19 09:22 Oxygen Delivery Method Room Air Weight: 135 lb 9.349 oz Body Mass Index (BMI) 19.3 Finger Stick Blood Glucose 70 Intake and Output for Last 24 Hours 08/21/19 08/22/19 08/23/19 23:59 23:59 23:59 Intake Total 2302.2 / 2952.2 1800 / 1999 500 / 500 Output Total 900 / 900 Balance 1402.2 / 2052.2 1799 / 1999 500 / 500 General: Alert, Oriented x3, Cooperative, No apparent distress HEENT: Atraumatic, PERRLA, EOMI, Normocephalic Oral: Moist Mucosa, No Gingival or Mucosal Lesions/ Ulcerations Neck: Supple, No JVD, Negative Carotid Bruits, Trachea Midline, Thyroid Normal Size and Texture Lungs: Clear to auscultation, Normal air movement, No rhonchi, No wheeze, No rales Cardiovascular: Regular rate, Regular Rhythm, Normal S1, Normal S2, PMI Normal Abdomen: Bowel Sounds Present, Soft, Non Tender, Non-Distended, No Hepato-splenomegaly Extremities: No clubbing, No cyanosis, No edema Skin: No rashes, No breakdown Lymphatic: No Cervical, Supraclavicular, or Inguinal Adenopathy Neurological: Cranial nerves II-XII grossly intact, Neuro grossly intact Psych/Mental Status: Appropriate, Flat Affect Home Medications: Medications to take at Discharge No Known/Unobtainable [No Known Home Medications] 03/06/17 Primary Care Physician: Care Physician,No Primary [Primary Care Provider] - Disposition: Against Medical Advice Minutes spent on discharge:: 27 Patient Condition:: Stable Medical Necessity - Tobacco Use Smoking Status: Current every day smoker Tobacco Use: Cigarettes Meaningful Use Info Meaningful Use Diagnoses (Choose all that apply): None applicable Code Visit Inpatient E&M: 14561 Disch Hosp
== END 2019-08-23 14:22 | disposition left against medical advice (07) | DRG 917 ==
LOC: ED 08-21 02:18 → ICU 08-21 03:38 → MS3 08-21 17:57
PROVIDERS: Admitting Provider Internal Medicine; Emergency Provider Emergency Medicine; Visit Provider Hospitalist
DX: T51.0X1A Toxic effect of ethanol, accidental (unintentional), initial encounter (principal); G92 Toxic encephalopathy; F10.239 Alcohol dependence with withdrawal, unspecified; E87.2 Acidosis; Y92.810 Car as the place of occurrence of the external cause; F10.229 Alcohol dependence with intoxication, unspecified; F12.90 Cannabis use, unspecified, uncomplicated; Y90.6 Blood alcohol level of 120-199 mg/100 ml; F17.210 Nicotine dependence, cigarettes, uncomplicated; Z91.5 Personal history of self-harm; Z53.29 Procedure and treatment not carried out because of patient's decision for other reasons
CPT/HCPCS: 70450; 80053; 80307; 80320; 80329; 82140; 82375; 82803; 82962; 83605; 85025; 93005; 99285; J7030; P9612; A4216; G0480; J3490

== ENCOUNTER 2023-10-02 00:05 | Emergency (ER) | payer MEDICAID, SELFPAY ==
[2023-10-02 00:09] VITALS: BP 130/69; PULSE 102; RESP 16; TEMP 36.7; O2SAT 99; BMI 16.9
--- NOTE | 2023-10-02 00:12 | EDS_ITS ---
HPI History of Present Illness Chief Complaint: Mental Health Informant: patient Onset/Context/Timing Onset: - (1 year) Activity at onset: gradual Timing: Continuous Quality: Positive for Pressure Location: Substernal and Right Chest Worsened By: - (Certain smells) Relieved By: Nothing Associated Symptoms: Positive for Dyspnea; Negative for Nausea, Vomiting, Diaphoresis, Cough, Fever, Lightheadedness, Acid Reflux or Palpitations Narrative Narrative: Patient presents with chest pain that has been constant for the past year. Patient describes it as a pressure. Patient states it is mainly over the substernal area and right chest. Patient states it is worse with certain smells. Patient states nothing makes it better. Patient admits to some shortness of breath. Patient denies any fevers or chills. Patient denies any nausea or vomiting. Patient also admits to having paranoid ideations. Patient states he feels like people are watching him and trying to get him. Patient denies any suicidal or homicidal ideations. Patient states he feels like there are bugs crawling on his chest. Patient also states he feels like his hips are being compressed together and his body is being elongated. PFSH PFSH Home Medications No Known/Unobtainable [No Known Home Medications] 03/06/17 [History Last Taken Unknown] Allergy/AdvReac Type Severity Reaction Status Date / Time No Known Allergies Allergy Verified 10/02/23 00:07 Social History Smoking Status: Current every day smoker tobacco type: cigarettes ROS ROS ED Constitutional Constitutional ED: Denies chills or fever(s) Eyes Eyes: Denies blurry vision or change in vision ENT ENT ED: Denies rhinorrhea or sore throat Cardiovascular Cardiovascular: Reports chest pain; Denies palpitations Respiratory/Chest Respiratory/Chest: Reports dyspnea; Denies cough Gastrointestinal Gastrointestinal: Denies nausea or vomiting Genitourinary Genitourinary ED: Denies dysuria or hematuria Musculoskeletal Musculoskeletal: Reports back pain and neck pain Integumentary Denies abscess or rash Neurologic Neurologic: Denies headache(s) or weakness Psychiatric Psychiatric: Reports anxiety, paranoia and tactile hallucinations Allergic/Immunologic Allergic/Immunologic ED: Denies mouth swelling or urticaria EXAM Physical Exam Const Vital Signs: 10/02/23 00:09 10/02/23 00:13 10/02/23 00:52 Temperature 98.1 F 98.1 F Temperature Source Oral Oral Pulse Rate 102 H 99 Respiratory Rate 16 13 Respiratory Effort Normal Blood Pressure 130/69 H 130/69 H Blood Pressure Mean 89 89 Pulse Ox 99 99 Oxygen Delivery Method Room Air Room Air 10/02/23 02:06 10/02/23 04:00 10/02/23 06:00 Temperature Temperature Source Pulse Rate 72 67 61 Respiratory Rate 17 14 13 Respiratory Effort Blood Pressure 121/51 H 110/59 L 109/49 L Blood Pressure Mean 74 76 69 Pulse Ox 97 97 96 Oxygen Delivery Method Room Air Room Air Room Air Positive well nourished and well developed General Appearance ED: well developed and NAD HEENT Reports moist mucous membranes Neck supple and no JVD Resp normal respiratory effort and clear to auscultation bilaterally Cardio regular rate and regular rhythm GI soft to palpation, non-tender and non-distended Extremity normal to inspection General Extremety ED: Negative for edema General Extremity: Negative for edema Neuro CN's II-XII intact bilaterally and no sensory deficits noted Sensorium / Orientation: awake and alert Motor Exam: strength 5/5 throughout Psych Attitude: paranoid Activity / Motor Behavior: hyperactive and disorganized Speech: excessive, rapid and pressured Mood & Affect: anxious and labile affect Thought Process: disorganized and tangential Thought Content: No suicidality, No homicidality, delusion(s) and h allucination(s) Positive for tactile Heart Score History: Slightly/Non-Suspicious ECG: Normal Age: </= 45 years Risk Factors: 1 or 2 Risk Factors Score: 1 MDM MDM MDM Narrative Medical decision making narrative: Differential diagnosis includes cardiac dysrhythmia, cardiac ischemia, pneumonia, pneumothorax, electrolyte abnormality, anxiety, and psychosis. EKG will be obtained to assess for cardiac dysrhythmia and cardiac ischemia. Chest x-ray will be obtained to assess for pneumonia and pneumothorax. CBC will be obtained to assess for leukocytosis and anemia. Comprehensive metabolic profile will be obtained to assess for electrolyte abnormality, hepatic function, and renal function. High-sensitivity troponin will be obtained to assess for cardiac ischemia. Urine tox screen will be obtained to assess for substance abuse. Serum alcohol level will be obtained to assess for alcohol intoxication. Lab Data Attestation: I reviewed the patient's lab results. Lab results narrative: CBC was reviewed. There is a slight leukocytosis of 11.2. The remainder is within normal limits. Comprehensive metabolic profile was reviewed and was essentially within normal limits. High-sensitivity troponin was reviewed and was normal at 6. PT with INR and PTT were reviewed and were within normal limits. Urinalysis was reviewed. There is no evidence of urinary tract infection or hematuria. Urine tox screen was reviewed and was negative. Serum alcohol level was reviewed and was normal. Labs: Laboratory Results - last 24 hr 10/02/23 10/02/23 00:18 01:00 WBC 11.2 H RBC 5.19 Hgb 15.4 Hct 45.9 MCV 88.4 MCH 29.7 MCHC 33.6 RDW Std Deviation 43.9 RDW Coeff of Shaina 13.6 Plt Count 268 MPV 10.2 Immature Gran % (Auto) 0.300 Neut % (Auto) 53.9 Lymph % (Auto) 31.0 Harlan % (Auto) 10.5 H Eos % (Auto) 3.1 Baso % (Auto) 1.2 H Absolute Neuts (auto) 6.0 Absolute Lymphs (auto) 3.47 Nucleated RBC % 0 PT 12.8 INR 1.0 APTT 33.6 Sodium 141 Potassium 3.6 Chloride 106 Carbon Dioxide 31.0 Anion Gap 4 L BUN 10 Creatinine 0.96 Estim Creat Clear Calc 92.01 Est GFR (MDRD) Af Amer 115 Est GFR (MDRD) Non-Af 95 BUN/Creatinine Ratio 10.4 Glucose 138 H Calcium 9.0 Total Bilirubin 0.30 AST 21 ALT 23 Alkaline Phosphatase 104 Troponin I High Sens 6 Total Protein 7.2 Albumin 4.1 Globulin 3.1 Albumin/Globulin Ratio 1.3 Urine Color Yellow Urine Clarity Clear Urine pH 8.0 Ur Specific [place] 1.015 Urine Protein Negative Urine Glucose (UA) Normal Urine Ketones Negative Urine Occult Blood Negative Urine Nitrite Negative Urine Bilirubin Negative Urine Urobilinogen Normal Ur Leukocyte Esterase Negative Urine RBC 0 SEEN Urine WBC 0 SEEN Ur Squamous Epith Cells 0 SEEN Urine Bacteria 0 SEEN Urine Mucus 0 SEEN Urine Opiates Screen NEGATIVE Urine Methadone Screen NEGATIVE Ur Barbiturates Screen NEGATIVE Ur Phencyclidine Scrn NEGATIVE Ur Amphetamines Screen NEGATIVE MDMA (Ecstasy) Screen NEGATIVE U Benzodiazepines Scrn NEGATIVE Urine Cocaine Screen NEGATIVE U Cannabinoids Screen NEGATIVE Ur Drug Screen Comment Ethyl Alcohol < 3.0 Radiography Chest X-Ray - ED: 1 View, Read by ED Physician, Read by Radiologist and No Acute Disease Diagnostic Testing: Clinical Impression(s) from Imaging Studies Chest X-Ray 10/02/23 00:52 IMPRESSION: No radiographic evidence of acute cardiopulmonary disease. Mild hyperexpansion which can be due to normal strong inspiratory effort or obstructive lung disease. Electronically Signed: David Knott MD at 2:13 EST , Portable 1 view chest x-ray was obtained. On my independent interpretation, lung celeste are clear. There is normal cardiac silhouette. Bony thorax is normal. There is no acute process noted. Radiologist also interpreted the x- ray and agrees. EKG Initial EKG: Attestation: I personally reviewed and interpreted this EKG as follows: Interpretation: Sinus Rhythm (99) and No Acute Injury Pattern Comments: EKG was obtained. On my independent interpretation, it showed a normal sinus rhythm with a rate of 99. NH interval, QRS interval, and QTc intervals were all normal. [place] was normal. There are no acute ST or T wave changes. Prior EKG tracings: available for review Prior: Unchanged (08/21/2019) Treatment and Re-Evaluation :: Patient is medically cleared. Crisis was called to evaluate the patient. Crisis counselor feels like the patient would benefit from placement in a psychiatric facility. I am agreeable with this. She will attempt to find the patient placement. [place] slip and transfer form will be filled out. Patient was accepted to [facility]. Patient will be transferred there. Discharge Plan Triage Chief Complaint: Mental Health Other Complaint: Chest Pain ED Provider: Bola Sanchez Dx/Rx/DC Orders Clinical Impression: Paranoid ideation, Psychosis Prescriptions: No Action No Known Home Medications Primary Care Provider: Care Physician,No Primary Referrals: Care Physician,No Primary [Primary Care Provider] - Disposition Disposition: Psychiatric Hospital or Unit Discharge Location: [facility]
[2023-10-02 00:13] VITALS: BP 130/69; PULSE 99; RESP 13; TEMP 36.7; O2SAT 99
--- NOTE | 2023-10-02 00:52 | RAD_ITS ---
INDICATION: Chest pain EXAMINATION/TECHNIQUE: X-RAY - XR Chest 1 View COMPARISON: None. FINDINGS: LINES/DEVICES: None. LUNGS: Lungs symmetrically mildly hyperexpanded. No consolidation, edema or effusion. No pneumothorax. MEDIASTINUM AND CARDIOVASCULAR STRUCTURES: Cardiac silhouette not enlarged. BONES AND SOFT TISSUES: Unremarkable. RAD/Chest 1 View (Portable) IMPRESSION: No radiographic evidence of acute cardiopulmonary disease. Mild hyperexpansion which can be due to normal strong inspiratory effort or obstructive lung disease. Electronically Signed: David Knott MD at 2:13 EST ,
--- NOTE | 2023-10-02 00:52 | EKG12_ITS ---
Test Reason : CP Blood Pressure : / mmHG Vent. Rate : 099 BPM Atrial Rate : 099 BPM P-R Int : 120 ms QRS Dur : 090 ms QT Int : 338 ms P-R-T Axes : 076 080 069 degrees QTc Int : 433 ms Normal sinus rhythm Normal ECG Confirmed by ZURI PAZ, HARSHAD ([id number]), supervising editor news reel RAFITA [email or web address] [id number]) on 10/02/2023 10:24:21 AM Referred By: JADEN Confirmed By:HARSHAD KEATING MD
--- OUTSIDE RECORDS SUMMARY | 2023-10-02 00:57 | XMS RPT_ITS | CCD ---
Author Name Unknown Address [address] [place] [id number] Organization [facility] Care Team Providers Care Import And Export Clerk Name Role Phone Floresita Hollins Unavailable Unavailable Patibandla, Luis Miguel Marvin Unavailable Unavail able Reyes Lyon Unavailable Unavailable Unavailable, Family Physician Unavailable Un available Unavailable, Family Physician Unavailable Un available Jhonatan Kj B. Unavailable Unavailable Jhonatan, Kj B. Unavailable Unavailable Unavailable Primary Care Provider Unavailabl e ROSALINDA GRIMES Attending Unavailable Required, No Pcp Unavailable Unavailable David Gandhi Unavailable Unavailable Darryl Ferguson Unavailable Unavailable Unavailable Primary Care Provider Unavailabl e Medications Completed/Discontinued Medications Medication Drug Class(es) Dates Sig (Normalized) Sig (Original) 1000 ml sodium chloride 9 mg/ml injection (2 sources) Start: 06-09-2019 End: 06-09-2019 sodium chloride 0.9% (NS) Problems Active Problems Problem Classification Problem Date Documented Da te Episodic/Chronic Alcohol-related disorders (1 source) Alcohol intoxication; Translations: [Alcoholic intoxication with complication (HCC)] Chronic Fracture of upper limb (1 source) Fracture of unspecified phalanx of right middle finger, initial encounter for closed fracture; Translations: [Fracture of unspecified phalanx of right middle finger, initial encounter for closed fracture] Onset: 11-19-2018 Episodic Open wounds of extremities (1 source) Laceration without foreign body of right middle finger without damage to nail, initial encounter; Translations: [Laceration without foreign body of right middle finger without damage to nail, initial encounter] Onset: 11-19-2018 Episodic Residual codes; unclassified (2 sources) Hallucinations; Translations: [Hallucinations] 12-27-2020 Episodic Schizophrenia and other psychotic disorders (1 source) Psychotic disorder; Translations: [Unspecified psychosis] 12-27-2020 Chronic Sprains and strains (1 source) Sprain of ankle; Translations: [Sprain of ankle, unspecified site] 12-05-2020 Episodic Unclassified (1 source) Unknown / UNK(Unknown) Onset: 05-23-2017 Unclassified (2 sources) FOOT INJURY 12-05-2020 Past or Other Problems Problem Classification Problem Date Documented Da te Episodic/Chronic Unclassified (1 source) PT STATES HOLE IN BOTTOM OF RIGHT FOOT Onset: 05-23-2017 Results Test Name Value Interpretation Reference Range Facil ity Vital Signs Date Time Vital Sign Value Performing Clinician Facility 12-05-2020 18:09-0400 Heart rate 70 /min No Pcp Required [facility] 12-05-2020 18:09-0400 Respiratory rate 18 /min No Pcp Required [facility] 12-05-2020 18:09-0400 SaO2% (BldA) [Mass fraction] 100 % No Pcp Required [facility] 12-05-2020 17:27-0400 Body temperature 98.06 [degF] No Pcp Required [facility] 12-05-2020 17:27-0400 Diastolic blood pressure 107 mm[Hg] No Pcp Required [facility] 12-05-2020 17:27-0400 Systolic blood pressure 129 mm[Hg] No Pcp Required [facility] 06-09-2019 11:17-0400 BP Diastolic 52 mm[Hg] [facility] 06-09-2019 11:17-0400 BP Systolic 117 mm[Hg] [facility] 06-09-2019 11:17-0400 Pulse (Heart Rate) 67 /min [facility] 06-09-2019 11:17-0400 Respiratory Rate 19 /min [facility] 06-09-2019 08:47-0400 Pulse Oximetry 98 % [facility] 06-09-2019 08:29-0400 Body Temperature 98.4 [degF] [facility] Encounters Encounter Date Encounter Type Care Provider Facility Start: 03-03-2021 Release of Information Provide r Not In [facility] Historical Mapping Start: 03-03-2021 HARIS Legacy Provider Not I n [facility] Historical Mapping Start: 12-27-2020 End: 12-28-2020 Emergency department patient visit Darryl Ferguson [facility] Emergency 03 Start: 12-05-2020 End: 12-05-2020 Emergency department patient visit David Gandhi [facility] Emergency 03 Start: 06-09-2019 End: 06-09-2019 Emergency department patient visit ROSALINDA GRIMES [facility] Start: 06-09-2019 End: 06-09-2019 Emergency department patient visit Rosalinda Grimes Work Phone: [facility] Emergency Department Procedures Date Procedure Procedure Detail Performing Clinician Start: 06-09-2019 Gas panel - Venous blood Rosalinda Grimes Work Phone: Start: 06-09-2019 Ammonia [Mass/volume ] in Plasma Rosalinda Grimes Work Phone: Start: 06-09-2019 OBTAIN VENOUS BLOOD GASES Rosalinda Grimes Work Phone: Start: 06-09-2019 Drugs of abuse urine screening test Rosalinda Grimes Work Phone: Start: 06-09-2019 Urinalysis Rosalinda Grimes Work Phone: Start: 06-09-2019 CT of head without contrast Rosalinda Grimes Work Phone: Start: 06-09-2019 Basic metabolic 2000 panel - Serum or Plasma Rosalinda Grimes Work Phone: Start: 06-09-2019 Complete blood count with white cell differential, automated Rosalinda Grimes Work Phone: Start: 06-09-2019 Complete blood count with white cell differential, manual Rosalinda Grimes Work Phone: Start: 06-09-2019 Ethanol [Mass/volume ] in Serum or Plasma Rosalinda Grimes Work Phone: Start: 06-09-2019 Hepatic function 200 0 panel - Serum or Plasma Rosalinda Grimes Work Phone: Start: 06-09-2019 LIGHT BLUE TOP Rosalinda Tellez tlow Chidi Work Phone: Start: 06-09-2019 LIGHT GREEN TOP Rosalinda E stlow Chidi Work Phone: Start: 06-09-2019 RAINBOW DRAW Rosalinda Grimes Work Phone: Start: 11-19-2018 APPLICATION FINGER S PLINT STATIC Start: 11-19-2018 WOUND CARE Start: 11-19-2018 Radlucie fingr minimum 2 views Plan of Treatment Date Care Activity Detail Author Start: 04-14-2021 Influenza vaccination Sequenti al Influenza Vaccine (#1) [facility] Start: 04-14-2019 Influenza vaccination given SE QUENTIAL INFLUENZA VACCINE (#1) [facility] Start: 2007 Hepatitis C screening Hepatitis C Sc reening [facility] Start: 2004 HIV screening HIV Screening [facility] Start: 2001 COVID-19 Vaccine (1) COVID-19 Vaccin e (1) [facility] Start: 2001 Depression screening using PHQ-9 (Patient Health Questionnaire 9) score Depression Screening (PHQ9) [facility] Start: 1995 Pneumococcal Vaccine : Ped or At-Risk (1 of 2 - PPSV23) Pneumococcal Vaccine: Ped or At-Risk (1 of 2 - PPSV23) [facility] Start: 1992 History and physical examination, annual for health maintenance Wellness Visit [facility] Start: 1989 Tetanus vaccination [facility] Payers Date Payer Category Payer Medicaid [employer] [place] [employer] [place] xxxxxxxxxxxx 2019-Present xxxxxxxxxxxx [id number] 2019 Medicaid [id number] 2019 Medicaid [employer] [place] [employer] [place] [id number] 2019-Present [phone] [address] [address] [place] [address] [id number] 2018 Unknown 1989 2016 Unknown [id number] 1989 Unknown [id number] 1989 Unknown [id number] [facility] Social History Date Type Detail Facility Tobacco smoking status NHIS Unknown if ev er smoked [facility] Start: 1989 Sex Assigned At Not [facility] Tobacco smoking consumption unknown [facility] Summary Purpose Family History No Family History Records FoundNo Family History Records FoundNo Family History Records FoundNo Family History Records FoundNo Family History Records FoundNo Family History Records Found Advance Directives Documents on File Type Date Recorded Patient Ell Tutor Expl anation Advance Directives and Livin g Will 06/09/2019 9:18 AM Discharge Instructions * Instructions* Rosalinda Grimes MD - 06/09/2019 DON'T DRINK ALCOHOL. documented in this encounter Assessments Diagnosis Alcoholic intoxication with complication (HCC)- Primary Additional Source Comments (unrecognized sect ion and content) No Status Records FoundNo Status Records FoundNo Status Records FoundNo Status Records FoundNo Status Records FoundNo Status Records Found INFORMATION SOURCE (unrecogn ized section and content) DATE CREATED AUTHOR AUTHOR'S ORGANIZ ATION 03/08/2018 [facility] DATE CREATED AUTHOR AUTHOR'S ORGANIZ ATION 11/20/2018 [facility] DATE CREATED AUTHOR AUTHOR'S ORGANIZ ATION 06/10/2019 [facility] DATE CREATED AUTHOR AUTHOR'S ORGANIZ ATION 09/09/2019 [facility] ([place]) DATE CREATED AUTHOR AUTHOR'S ORGANIZ ATION 01/05/2021 [facility] Reason for Visit (unrecogniz ed section and content) Pauline Lee RN - 06/09/2019 11:43 AM Pauline Estrada RN - 06/09/2019 9:40 AM Pauline Estrada RN - 06/09/2019 9:33 AM Pauline Estrada RN - 06/09/2019 9:13 AM EDT ED Notes (unrecognized secti on and content) Dept called and patient provided with information RE vehicle was towed to [place] and intersection he was found at to search for keys. Attempting to get a ride however from [facility]. Patient awake sitting up in bed. 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 Lab bedside for Ammonia and VBG Lab called for VBG Dr Grimes aware of UDS and ETOH no new orders at this time, patient condition remains unchanged. VSS on RA. BGL- 109mg/dl Patient arrived to ED via EMS unresponsive in back seat of truck. Patient was given 6 mg Narcan MAD via PD. 20g IV to Left AC. Patient unresponsive to painful stimuli GCS 5 on arrival. 0813 14 g IV to Right AC placed labs drawn no response from patient 0815 Glucose 109 0816 16 Fr Khan placed no response from patient [address] [facility] bedside with identification and cell phone found in center console of truck. Dr Grimes bedside patient remains unresponsive gag reflex + with coughing. No eye opening noted. Remains unresponsive to painful stimuli no verbalization. Patient on monitor. Respirs even unlabored. documented in this encounter <item><item> Privacy Markings (unrecogniz ed section and content) Section Author: Cecilia Kimball PROHIBITION ON REDISCLOSURE OF CONFIDENTIAL INFORMATION This notice accompanies a disclosure of information concerning a client made to you with the consent of such client. Section Author: Cecilia Kimball PROHIBITION ON REDISCLOSURE OF CONFIDENTIAL INFORMATION This notice accompanies a disclosure of information concerning a client made to you with the consent of such client. FOR RECORDS PERTAINING TO PATIENTS WHO ARE OR HAVE BEEN ENROLLED IN A CHEMICAL DEPENDENCY/SUBSTANCEABUSE PROGRAM, SOME INFORMATION MAY BE OMITTED. This clinical summary was aggregated from multiple sources. Caution should be exercised in using it in the provision of clinical care. This summary normalizes information from multiple sources, and as a consequence, information in this document may materially change the coding, format and clinical context of patient data. In addition, data may be omitted in some cases. CLINICAL DECISIONS SHOULD BE BASED ON THE PRIMARY CLINICAL RECORDS. [facility]. provides no warranty or guarantee of the accuracy or completeness of information in this document.
[2023-10-02 01:02] LABS: Absolute Lymphocyte Count 3.47 X10^3/uL (0.83-4.51); Basophil# 0.14 X10^3/uL; Basophil% 1.2 % (0-1); Eosinophil# 0.35 X10^3/uL; Eosinophils% 3.1 % (0-5); Hematocrit 45.9 % (40-54); Hemoglobin 15.4 g/dL (13.0-16.5); Lymphocyte # 3.47 X10^3/ul (0.83-4.51); Mean Corp Hgb Conc 33.6 g/dL (32-36); Mean Corpuscular Hgb 29.7 pg (27.0-32.0); Mean Corpuscular Volume 88.4 fL (80-94); Mean Platelet Vol. 10.2 fl (6.2-12.0); Monocyte# 1.18 X10^3/uL; Monocyte% 10.5 % (0-10); NRBC Flagged by Analyzer 0 % (0-5); Neutrophil # 6.04 X10^3/uL (2.7-7.7); Neutrophil % 53.9 % (47-70); Platelet Count 268 K/mm3 (150-450); RBC Distribution Width CV 13.6 % (11.6-14.6); RBC Distribution Width SD 43.9 fl (35.1-43.9); Red Blood Count 5.19 M/mm3 (4.6-6.2); White Blood Count 11.2 K/mm3 (4.4-11.0)
[2023-10-02 01:08] LABS: Bacteria 0 SEEN /hpf (None Seen); Mucous, Urine 0 SEEN /hpf (<or=2+); Red Blood Cells-Urine 0 SEEN /hpf (0-5); Squamous Epithelial Cells - UA 0 SEEN /hpf (0-5); White Blood Cells 0 SEEN /hpf (0-5)
[2023-10-02 01:10] LABS: Color, Urine Yellow (Yellow); Glucose, Dipstick Normal (Normal); Ketone-Dipstick Negative (Negative); Leukocyte Esterase-Dipstick Negative /ul (Negative); Nitrite-Dipstick Negative (Negative); Occult Blood-Urine Negative /ul (Negative); Protein-Dipstick Negative (Negative); Specific Gravity, Urine 1.015 (1.002-1.030); Urine Bilirubin Dipstick Negative (Negative); Urine Clarity Clear (Clear); Urine Urobilinogen Normal (Normal)
[2023-10-02 01:18] LABS: Partial Thromboplast Time 33.6 Seconds (24.1-36.2); Prothrombin Time (Protime)PT. 12.8 SECONDS (11.7-14.9)
[2023-10-02 01:20] LABS: ALB/GLOB Ratio 1.3 RATIO (0.9-2.4); AST(SGOT) 21 U/L (15-37); Alanine Aminotransfer ALT/SGPT 23 U/L (16-61); Albumin, Serum 4.1 g/dL (3.2-5.0); Alkaline Phosphatase 104 U/L (45-117); Anion Gap 4 (5-15); BUN 10 mg/dL (7-18); BUN/Creat Ratio 10.4 RATIO (10-20); Chloride 106 mmol/L (98-107); Creatinine, Serum 0.96 mg/dL (0.70-1.30); EST Glomerular Filtration Rate 95 mL/min (>60); Est Glom Filt Rate - Afr Amer 115 mL/min (>60); Estimated Creatinine Clearance 92.01 ml/min; Globulin 3.1 g/dL (2.2-4.2); Glucose 138 mg/dL (74-106); Potassium 3.6 mmol/L (3.5-5.1); Protein, Total 7.2 g/dL (6.4-8.2); Sodium Level 141 mmol/L (136-145); Troponin-I HS 6 pg/mL (3.0-78.0)
[2023-10-02 01:22] LABS: Amphetamine Urine VISTA NEGATIVE (<1000 ng/mL); Barbiturate Urine VISTA NEGATIVE (< 200 ng/mL); Benzodiazepine Urine VISTA NEGATIVE (< 200 ng/mL); Cocaine Urine VISTA NEGATIVE (< 300 ng/mL); Ecstacy Urine VISTA NEGATIVE (< 500 ng/mL); Methadone Urine VISTA NEGATIVE (< 300 ng/mL); PCP Urine VISTA NEGATIVE (< 25 ng/mL); THC Urine VISTA NEGATIVE (< 50 ng/mL); Vista UDS pH Range 7
[2023-10-02 01:28] LABS: Alcohol, Blood (Medical)-Serum < 3.0 mg/dL
[2023-10-02 02:06] VITALS: BP 121/51; PULSE 72; RESP 17; O2SAT 97
[2023-10-02] MEDS: Acetaminophen 500 MG Tablet 1000 MG PO (02:58)
[2023-10-02 04:00] VITALS: BP 110/59; PULSE 67; RESP 14; O2SAT 97
[2023-10-02 06:00] VITALS: BP 109/49; PULSE 61; RESP 13; O2SAT 96
[2023-10-02 08:40] VITALS: BP 111/44; PULSE 61; RESP 16; TEMP 36.7; O2SAT 96
== END 2023-10-02 09:01 ==
PROVIDERS: Emergency Provider Emergency Medicine; Visit Provider Emergency Medicine
DX: R44.2 Other hallucinations (principal); R06.02 Shortness of breath; F17.210 Nicotine dependence, cigarettes, uncomplicated; R07.9 Chest pain, unspecified; F41.9 Anxiety disorder, unspecified
CPT/HCPCS: 71045; 80053; 80307; 80320; 81001; 84484; 85025; 85610; 85730; 93005; 99285; A4216; G0480

== ENCOUNTER 2024-01-04 19:38 | Emergency (ER) | payer MEDICAID, SELFPAY ==
[2024-01-04 19:39] VITALS: BP 118/73; PULSE 105; RESP 16; TEMP 36.4; O2SAT 96; BMI 17.9
--- NOTE | 2024-01-04 19:48 | EX.ED.UPPERE ---
HPI History of Present Illness Chief Complaint: Upper Extremity Injury Detail of Chief Complaint: Injury to right elbow Informant: patient Narrative Narrative: Patient presents with injury to right elbow occurred about 3 hours ago. Patient states that he was on a skateboard going down the road when he fell and injured his right elbow. He is right-hand dominant. Denies striking his head or loss of consciousness. Denies neck pain or chest pain or abdominal pain. PFSH PFSH Home Medications ?Medication ?Instructions ?Recorded ?Last Taken ?Type No Known/Unobtainable [No Known 03/06/17 Unknown History Home Medications] hydrocodone-acetaminophen 5-325mg 1 tab PO Q4H PRN PRN Pain 2 days 01/04/24 Unknown Rx 5mg-325mg #10 TABLETS Allergy/AdvReac Type Severity Reaction Status Date / Time No Known Allergies Allergy Verified 01/04/24 19:41 Social History Smoking Status: Current every day smoker tobacco type: cigarettes ROS ROS ED Review of Systems ROS Unobtainable: other Constitutional Constitutional ED: Reports lethargy; Denies chills, fever(s), sweats or weight loss Eyes Eyes: Denies blurry vision, change in vision or diplopia ENT ENT ED: Denies rhinorrhea or sore throat Cardiovascular Cardiovascular: Reports chest pain and racing heartbeat; Denies orthopnea Respiratory/Chest Respiratory/Chest: Reports dyspnea and dyspnea on exertion; Denies cough, orthopnea or sputum Gastrointestinal Gastrointestinal: Denies abdominal pain, diarrhea, nausea or vomiting Genitourinary Genitourinary ED: Denies dysuria, hematuria or urinary frequency Musculoskeletal Musculoskeletal: Reports other Details: Right elbow injury ; Denies arthralgias, back pain, myalgias or neck pain Integumentary Denies abscess, Abrasions or rash Neurologic Neurologic: Denies headache(s) or weakness Psychiatric Psychiatric: Denies anxiety, depression or suicidal thoughts Endocrine Endocrinology: Denies polydipsia, polyphagia or polyuria Hematologic/Lymphatic Hematologic/Lymphatic: Denies easy bleeding, easy bruising or lymphadenopathy Allergic/Immunologic Allergic/Immunologic ED: Denies mouth swelling, tongue swelling or urticaria EXAM Physical Exam Const Vital Signs: 01/04/24 19:39 Temperature 97.6 F L Temperature Source Temporal Pulse Rate 105 H Respiratory Rate 16 Blood Pressure 118/73 Blood Pressure Mean 88 Pulse Ox 96 Oxygen Delivery Method Room Air Positive well nourished and well developed General Appearance ED: well developed and NAD HEENT Reports TM's clear and moist mucous membranes normocephalic and atraumatic; Negative for trauma or tenderness Tympanic Membrane ED: Yes TM's clear Eyes PERRL and EOMs intact bilaterally General Eye ED: Negative for pale conjunctiva or scleral icterus Neck no lymphadenopathy, supple and no JVD General: Negative for tenderness Chest Wall inspection of chest normal and palpation of chest normal Chest: Negative for tenderness Resp normal respiratory effort and clear to auscultation bilaterally Effort and Inspection: Negative for respiratory distress or pain with movement Auscultation: Negative for rhonchi, wheezes or diminished lung sounds Cardio regular rate, regular rhythm, S1 normal heart sound, S2 normal heart sound and no murmurs Peripheral Pulses: pulses 2+ throughout GI normal to inspection, nondistended, normoactive bowel sounds, soft to palpation, non-tender, non-distended and no masses Back/Spine no CVA tenderness and no thoracic nor lumbar tenderness Extremity normal to inspection Extremity Narrative: Right elbow-patient holds the elbow flexed. Limited ability to extend it secondary to pain. There is no obvious deformity. No broken skin noted. Neurovascular intact distally. Patient has a abrasion/road rash to the right posterior upper back just lateral to the scapula. No significant bony tenderness on exam. General Extremety ED: Negative for edema General Extremity: Negative for edema Neuro oriented x3, CN's II-XII intact bilaterally, no sensory deficits noted and gait normal Sensorium / Orientation: awake, alert, oriented to person, oriented to place and oriented to time Motor Exam: strength 5/5 throughout and strength abnormal Psych mental status grossly normal Skin no rashes or lesions noted and no wounds MDM MDM MDM Narrative Medical decision making narrative: Three-view x-rays of the right elbow obtained interpreted by myself as no evidence of fracture or dislocation. Radiology felt there might be evidence of an occult radial neck fracture. Patient will be placed in the sling. He will be given a prescription for a few [place] for pain. Will refer to orthopedics for follow-up. Discharge Plan Triage Chief Complaint: Upper Extremity Injury ED Provider: Tomás Nunez Dx/Rx/DC Orders Clinical Impression: Fracture of head of radius Instructions: ED Elbow Fracture Prescriptions: New hydrocodone-acetaminophen 5-325 mg tablet 1 tab PO Q4H PRN PRN (Reason: Pain) 2 Days Qty: 10 0RF No Action No Known Home Medications Primary Care Provider: Care Physician,No Primary Referrals: Jus Aguirre MD [Med Staff - Active Staff] - 3-5 Days Care Physician,No Primary [Primary Care Provider] - Print Language: Divehi Disposition Disposition: Home, Self Care
--- NOTE | 2024-01-04 19:55 | RAD_ITS ---
STUDY: X-RAY - RIGHT ELBOW REASON FOR EXAM: Male, 33 years old. injury TECHNIQUE: 3 view(s) of the elbow. COMPARISON: None. FINDINGS: Normal visualized humerus, radius and ulna. Normal radiocapitellar and ulnotrochlear articulations. The soft tissue structures are unremarkable. Visualization of posterior fat pad worrisome for hemarthrosis possibly from a radial neck fracture. RAD/Elbow min 3 Views IMPRESSION: Suspect radiographically occult radial neck fracture with hemarthrosis. Electronically Signed: Evan Zepeda MD at 20:20 EDT ,
[2024-01-04] MEDS: Diphth,Pertuss(Acell),Tet Vac 0.5 ML Vial IM (20:07)
[2024-01-04 21:08] VITALS: BP 144/70; PULSE 82; RESP 16; TEMP 36.6; O2SAT 98
== END 2024-01-04 21:30 | disposition home or self-care (01) ==
PROVIDERS: Emergency Provider Emergency Medicine; Visit Provider Emergency Medicine
DX: S59.901A Unspecified injury of right elbow, initial encounter (principal); V00.131A Fall from skateboard, initial encounter; Y93.51 Activity, roller skating (inline) and skateboarding; Y99.8 Other external cause status; Y92.410 Unspecified street and highway as the place of occurrence of the external cause; F17.210 Nicotine dependence, cigarettes, uncomplicated
CPT/HCPCS: 73080; 90715; 99283

== ENCOUNTER 2024-08-01 08:21 | Emergency (ER) | payer MEDICAID, SELFPAY ==
[2024-08-01 08:22] VITALS: BP 113/62; PULSE 72; RESP 16; TEMP 37.2; O2SAT 98; BMI 18.6
--- NOTE | 2024-08-01 09:11 | ED.VIS.DENTA ---
HPI History of Present Illness Chief Complaint: Dental Detail of Chief Complaint: Dental pain Informant: patient Narrative Narrative: Patient presents with dental pain that started this morning. 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 He has poor dentition but does not have a dentist. Today he felt a large bubble to the right upper gum and is worried about an abscess. He said no fevers or chills or sweats. PFSH PFSH Home Medications ?Medication ?Instructions ?Recorded ?Last Taken ?Type hydrocodone-acetaminophen 5-325mg 1 tab PO Q4H PRN PRN Pain 2 days 01/04/24 Unknown Rx 5mg-325mg #10 TABLETS clindamycin HCl 300 mg capsule 300 mg PO Q6H #40 CAPSULES 08/01/24 Unknown Rx (Cleocin HCl) naproxen 500 mg tablet (Naprosyn) 500 mg PO BID PRN pain #20 tabs 08/01/24 Unknown Rx Allergy/AdvReac Type Severity Reaction Status Date / Time No Known Allergies Allergy Verified 01/04/24 19:41 Social History Smoking Status: Current every day smoker tobacco type: cigarettes ROS ROS ED Review of Systems ROS Unobtainable: other Constitutional Constitutional ED: Reports lethargy; Denies chills, fever(s), sweats or weight loss Eyes Eyes: Denies blurry vision, change in vision or diplopia ENT ENT ED: Reports other Details: Dental pain/abscess ; Denies rhinorrhea or sore throat Cardiovascular Cardiovascular: Denies chest pain, orthopnea or racing heartbeat Respiratory/Chest Respiratory/Chest: Denies cough, dyspnea, dyspnea on exertion, orthopnea or sputum Gastrointestinal Gastrointestinal: Denies abdominal pain, diarrhea, nausea or vomiting Genitourinary Genitourinary ED: Denies dysuria, hematuria or urinary frequency Musculoskeletal Musculoskeletal: Denies arthralgias, back pain, myalgias or neck pain Integumentary Denies abscess, Abrasions or rash Neurologic Neurologic: Denies headache(s) or weakness Psychiatric Psychiatric: Denies anxiety, depression or suicidal thoughts Endocrine Endocrinology: Denies polydipsia, polyphagia or polyuria Hematologic/Lymphatic Hematologic/Lymphatic: Denies easy bleeding, easy bruising or lymphadenopathy Allergic/Immunologic Allergic/Immunologic ED: Denies mouth swelling, tongue swelling or urticaria EXAM Physical Exam Const Vital Signs: 08/01/24 08:22 Temperature 99 F Temperature Source Temporal Pulse Rate 72 Respiratory Rate 16 Blood Pressure 113/62 Blood Pressure Mean 79 Pulse Ox 98 Oxygen Delivery Method Room Air Positive well nourished and well developed General Appearance ED: well developed and NAD HEENT Reports TM's clear and moist mucous membranes HEENT Narrative: Dentition-patient has tenderness palpation to the right upper molar #2. He has gingival swelling consistent with an abscess on the inner aspect of the gingiva. There is no facial erythema or cellulitic changes noted. normocephalic and atraumatic; Negative for trauma or tenderness Tympanic Membrane ED: Yes TM's clear Eyes PERRL and EOMs intact bilaterally General Eye ED: Negative for pale conjunctiva or scleral icterus Neck no lymphadenopathy, supple and no JVD General: Negative for tenderness Chest Wall inspection of chest normal and palpation of chest normal Chest: Negative for tenderness Resp normal respiratory effort and clear to auscultation bilaterally Effort and Inspection: Negative for respiratory distress or pain with movement Auscultation: Negative for rhonchi, wheezes or diminished lung sounds Cardio regular rate, regular rhythm, S1 normal heart sound, S2 normal heart sound and no murmurs Peripheral Pulses: pulses 2+ throughout GI normal to inspection, nondistended, normoactive bowel sounds, soft to palpation, non-tender, non-distended and no masses Back/Spine no CVA tenderness and no thoracic nor lumbar tenderness Extremity normal to inspection General Extremety ED: Negative for edema General Extremity: Negative for edema Neuro oriented x3, CN's II-XII intact bilaterally, no sensory deficits noted and gait normal Sensorium / Orientation: awake, alert, oriented to person, oriented to place and oriented to time Motor Exam: strength 5/5 throughout and strength abnormal Psych mental status grossly normal Skin no rashes or lesions noted and no wounds MDM MDM MDM Narrative Medical decision making narrative: Patient has a dental abscess. Recommended incision and drainage to which she agreed. Used a 18-gauge needle to make a stab incision into the most fluctuant portion of the suspected abscess and large amount of purulent debris was expressed. Patient tolerated procedure well. This time we will start on clindamycin and I will write him for naproxen. Will give a list of dentists in the area to follow-up with. Discharge Plan Triage Chief Complaint: Dental ED Provider: Tomás Nunez Dx/Rx/DC Orders Clinical Impression: Abscess, dental Instructions: Dental Abscess Prescriptions: New clindamycin HCl [Cleocin HCl] 300 mg capsule 300 mg PO Q6H Qty: 40 0RF naproxen [Naprosyn] 500 mg tablet 500 mg PO BID PRN (Reason: pain) Qty: 20 0RF No Action hydrocodone-acetaminophen 5-325 mg tablet 1 tab PO Q4H PRN PRN (Reason: Pain) 2 Days Qty: 10 0RF Primary Care Provider: Care Physician,No Primary Referrals: Care Physician,No Primary [Primary Care Provider] - Activity Restrictions/Additional Instructions: Follow-up with a dentist at the earliest possible time Print Language: Croatian Disposition Disposition: Home, Self Care
== END 2024-08-01 09:20 | disposition home or self-care (01) ==
LOC: ED 09:18
PROVIDERS: Emergency Provider Emergency Medicine; Visit Provider Emergency Medicine
DX: K04.7 Periapical abscess without sinus (principal); F17.210 Nicotine dependence, cigarettes, uncomplicated
CPT/HCPCS: 99282